=== PATIENT | female | born 1995 | race Caucasian/White ===

== ENCOUNTER 2018-04-22 19:13 | Emergency (ER) | payer OTHER ==
[~2018-04-22] VITALS: Ht 157.5 cm; Wt 50.0 kg
[2018-04-22] MEDS ORDERED: METRONIDAZOLE PMX 500MG/100ML 0 ML ONE (19:36)
[2018-04-22] MEDS ORDERED: BACITRACIN ZINC OINT 500U/GM, 0.9 GM ONE ×2 (19:47→20:18)
[2018-04-22 20:26] VITALS: BP 139/73
[2018-04-22] MEDS ORDERED: L.E.T SOLUTION TP ONE (20:30)
[2018-04-22] MEDS ORDERED: IBUPROFEN 200 MG TABLET PO ONE (20:30)
[2018-04-22] MEDS ORDERED: IBUPROFEN 200 MG TABLET ONE (20:33)
== END 2018-04-22 21:08 | disposition home or self-care (01) ==
LOC: ED 21:00
DX: S06.321A Contusion and laceration of left cerebrum with loss of consciousness of 30 minutes or less, initial encounter (principal); S80.211A Abrasion, right knee, initial encounter; S50.312A Abrasion of left elbow, initial encounter; S80.212A Abrasion, left knee, initial encounter; S80.812A Abrasion, left lower leg, initial encounter; V27.0XXA Motorcycle driver injured in collision with fixed or stationary object in nontraffic accident, initial encounter; Y93.89 Activity, other specified; Y92.89 Other specified places as the place of occurrence of the external cause; Y99.8 Other external cause status
CPT/HCPCS: 12031; 70450; 72125; 99284

== ENCOUNTER 2018-04-24 10:43 | Emergency (ER) | payer OTHER ==
[~2018-04-24] VITALS: Ht 160 cm; Wt 52.8 kg
[2018-04-24 10:45] VITALS: BP 104/69
== END 2018-04-24 12:26 | disposition home or self-care (01) ==
LOC: ED 12:20
DX: S06.0X9A Concussion with loss of consciousness of unspecified duration, initial encounter (principal); X58.XXXA Exposure to other specified factors, initial encounter; Y93.89 Activity, other specified; Y92.89 Other specified places as the place of occurrence of the external cause; Y99.8 Other external cause status
CPT/HCPCS: 99281